=== PATIENT | male | born 1950 | race Caucasian/White ===

== ENCOUNTER 2019-04-21 06:30 | Day surgery (SDC) | payer MEDICARE, MEDICAID ==
[~2019-04-21 06:30] MED LIST: EPINEPHrine 0.3 MG in Ophthalmic Irrigation Solution 500 ML IVP SCH
[2019-04-21] MEDS ORDERED: Midazolam HCl 2 mg/2 ml Vial ONE (06:31)
[2019-04-21] MEDS ORDERED: Fentanyl 100 MCG/2 ML VIAL ONE (06:31)
[2019-04-21] MEDS ORDERED: Phenylephrine 2.5% Ophth Soln 5 ML BOT ONE (07:27)
[2019-04-21] MEDS ORDERED: Cyclopentolate 1% Opth Drop 2 ML BOT ONE (07:27)
--- NOTE | 2019-04-21 11:09 | OP ---
DATE OF PROCEDURE: 04/21/2019 PREOPERATIVE DIAGNOSES: Vitreous hemorrhage and angle closure glaucoma, right eye. POSTOPERATIVE DIAGNOSES: Vitreous hemorrhage and angle closure glaucoma, right eye. PROCEDURES PERFORMED: Pars plana vitrectomy, membrane peel, tube shunts, scleral patch graft, right eye. ANESTHESIA: Local with monitored anesthesia care. PROCEDURE IN DETAIL: The patient was identified in the preoperative holding area. Appropriate informed consent for the planned surgical procedure on the right eye had been obtained. The patient was transported to the operative suite, where appropriate cardiopulmonary monitoring was established. Local anesthesia obtained using retrobulbar modified [place] Lint lid block using 50:50 mixture of 4% lidocaine and 0.75% bupivacaine. The patient was prepped and draped in usual sterile manner for ophthalmic surgery on the right eye. Lid speculum was placed in the right eye. FP7 tube shunt was placed through the conjunctival peritomy inferonasally and sutured in placed with 5-0 [place] sutures. A 25-gauge trocar was placed in the conjunctivae and sclerae superotemporally, inferotemporally, and supranasally. Infusion line was placed inferotemporally. Side-port incision was created superior temporally and anterior chamber hemorrhage was removed. Light pipe vitreous cutter was inserted into the eye. Core vitrectomy was performed. Significant amounts of posterior chamber hemorrhage and membranes were identified and dissected. Panretinal photocoagulation was placed in all non-macular areas of the retina. Inferior nasal sclerotomy was created and a large 22-gauge tube was introduced into the vitreous cavity and noted to be properly positioned. Tutoplast was fixated over the tube insertion site using 7-0 Vicryl suture. Conjunctiva was closed with 6-0 plain gut suture. Retrobulbar Kenalog and subconjunctival Ancef were placed. Antibiotic ointment was placed and the eye was patched and shielded. The patient was taken to postoperative recovery unit in good condition, having suffered no immediate perioperative complications. The patient was instructed to keep the patch and shield on, avoid lifting or bending, and Followup appointment with Dr. Hewitt. Job ID: [id number]
== END 2019-04-21 10:45 | disposition home or self-care (01) ==
LOC: SDC 06:30
PROVIDERS: ATTEND Ophthalmology Retina Specialist
PROC: 08T43ZZ Resection of Right Vitreous, Percutaneous Approach (ICD-10-PCS; principal; 2019-04-21)
PROC: 08NE3ZZ Release Right Retina, Percutaneous Approach (ICD-10-PCS; 2019-04-21)
DX: H40.20X0 Unspecified primary angle-closure glaucoma, stage unspecified (principal); H43.11 Vitreous hemorrhage, right eye
CPT/HCPCS: J0131; J0171; J2250; J3010